=== PATIENT | female | born 1950 | race Caucasian/White ===

== ENCOUNTER → 2016-09-20 | Outpatient (CLI) | payer BC ==
[~2016-09-20] MED LIST: AMLO-110 PO; CALC-20 PO; CHOL2000 PO; CRAN500C2 PO; LUTE15CA PO; MISCCAP80 PO; MULTTAB58 PO
--- NOTE | 2016-09-20 12:39 | MAMMOGRAPHY REPORT ---
BILATERAL DIGITAL SCREENING MAMMOGRAM WITH CAD: 09/20/2016 TECHNIQUE: Current study was also evaluated with a Computer Aided Detection (CAD) system. Bilatera l CC and MLO views were obtained. COMPARISON: Comparison is made to exams dated: 09/20/2015 mammogram, 09/15/2013 mammogram, 09/16/2014 ryanne mogram, 09/13/2012 mammogram, 09/12/2011 mammogram, and 09/08/2010 mammogram - [facility] [place]. BREAST COMPOSITION: There are scattered areas of fibroglandular density in both breasts. FINDINGS: No suspicious masses, calcifications, or areas of architectural distortion are noted in e ither breast. There has been no significant interval change compared to prior exams. IMPRESSION: ACR BI-RADS CATEGORY 1: NEGATIVE There is no mammographic evidence of malignancy. A 1 year screening mammogram is recommended. The p atient will receive written notification of the results. Approximately 10% of breast cancers are not detected with mammography. A negative mammographic repor t should not delay biopsy if a clinically suggestive mass is present. Kalani Duval M.D. ah/:09/20/2016 12:18:47 Documentation Spec: Evelyne Troncoso RT(R)(M), [facility] letter sent: Normal 1/2 BI-RADS Code: ACR BI-RADS Category 1: Negative
== END | disposition home or self-care (01) ==
LOC: C.MAMM 09:06
PROVIDERS: ATTEND Obstetrics & Gynecology
DX: Z12.31 Encounter for screening mammogram for malignant neoplasm of breast (principal)

== ENCOUNTER → 2016-12-20 | Outpatient (CLI) | payer BC ==
[2016-12-20 10:50] LABS: BASO % 0.6 %; BASO ABS # 0.03 K/uL (0-0.2); COMPLETE YES; EOS % 1.8 %; HEMATOCRIT 43.9 % (37-47); IG% 0.2 %; LYMPH % 25.9 %; LYMPH ABS # 1.33 K/uL (1.2-3.4); MEAN CELL VOLUME 92.6 fL (80-100); MEAN CORPUSCULAR HGB CONC 33.5 g/dl (32-36); MONO % 9.7 %; NEUT % 61.8 %; PLATELET COUNT 259 K/uL (130-400); RED BLOOD COUNT 4.74 M/uL (4.2-5.4); WHITE BLOOD COUNT 5.13 K/uL (4.8-10.8)
[2016-12-20 10:52] LABS: ALT/SGPT 25 U/L (12-78); AST/SGOT 17 U/L (15-37); BLOOD UREA NITROGEN 17 mg/dl (7-18); BUN/CREATININE RATIO 19.6 (10-20); CARBON DIOXIDE 28 mmol/L (21-32); CHLORIDE 107 mmol/L (98-107); CHOLESTEROL 230 mg/dl (0-200); CREATININE 0.89 mg/dl (0.60-1.20); GLUCOSE 88 mg/dl (70-99); POTASSIUM 4.4 mmol/L (3.5-5.1); SODIUM 142 mmol/L (136-145); TRIGLYCERIDES 75 mg/dl (0-150); VERY LOW DENSITY LIPOPROT CALC 15 mg/dl
[2016-12-20 10:55] LABS: CHOLESTEROL/HDL RATIO 3.5; HDL CHOLESTEROL 66 mg/dl; LDL CHOLESTEROL CALCULATED 149 mg/dl
[2016-12-20 11:00] LABS: CALCIUM 9.6 mg/dl (8.5-10.1)
== END | disposition home or self-care (01) ==
LOC: C.LAB1850 09:34
PROVIDERS: ATTEND Internal Medicine
DX: Z00.00 Encounter for general adult medical examination without abnormal findings (principal); Z11.59 Encounter for screening for other viral diseases; E78.5 Hyperlipidemia, unspecified; I10 Essential (primary) hypertension; M19.90 Unspecified osteoarthritis, unspecified site; R31.9 Hematuria, unspecified

== ENCOUNTER → 2017-05-07 | Outpatient (CLI) | payer BC | END | disposition home or self-care (01) | LOC: C.LAB 13:47 | PROVIDERS: ATTEND Nurse Practitioner Adult Health | DX: R30.0 Dysuria (principal) ==

== ENCOUNTER → 2017-07-02 | Outpatient (CLI) | payer BC | END | disposition home or self-care (01) | LOC: C.RDSM 11:42 | PROVIDERS: ATTEND Physical Medicine & Rehabilitation Sports Medicine | DX: M79.671 Pain in right foot (principal) ==

== ENCOUNTER → 2017-09-24 | Outpatient (CLI) | payer BC ==
--- NOTE | 2017-09-24 15:18 | MAMMOGRAPHY REPORT ---
BILATERAL DIGITAL SCREENING MAMMOGRAM TOMOSYNTHESIS WITH CAD: 09/24/2017 CLINICAL HISTORY: Routine screening examination. TECHNIQUE: Breast tomosynthesis in addition to standard 2D mammography was performed. Current study was also evaluated with a Computer Aided Detection (CAD) system. COMPARISON: Comparison is made to exams dated: 09/20/2016 mammogram, 09/20/2015 mammogram, 09/16/2014 mamm ogram, 09/15/2013 mammogram, 09/13/2012 mammogram, and 09/12/2011 mammogram - [facility] . BREAST COMPOSITION: There are scattered areas of fibroglandular density in both breasts. FINDINGS: The parenchymal pattern is unchanged. No developing mass, architectural distortion or clus ter of suspicious microcalcifications is seen in either breast. IMPRESSION: ACR BI-RADS CATEGORY 2: BENIGN There is no mammographic evidence of malignancy. A 1 year screening mammogram is recommended. The pa tient will receive written notification of the results. Approximately 10% of breast cancers are not detected with mammography. A negative mammographic report should not delay biopsy if a clinically suggestive mass is present. Niya Smith M.D. ay/:09/24/2017 12:10:10 Senior Q[employer] Automation Engineer: Evelyne STACK(Berny)(Rakan), [facility] letter sent: Normal 1/2 BI-RADS Code: ACR BI-RADS Category 2: Benign
== END | disposition home or self-care (01) ==
LOC: C.MAMM 08:49
PROVIDERS: ATTEND Obstetrics & Gynecology
DX: Z12.31 Encounter for screening mammogram for malignant neoplasm of breast (principal)

== ENCOUNTER → 2017-09-24 | Outpatient (CLI) | payer BC ==
[2017-09-24 10:14] LABS: HEMATOCRIT 42.5 % (37-47); HEMOGLOBIN 14.7 g/dL (12.0-16.0); MEAN CELL VOLUME 91.4 fL (80-100); MEAN CORPUSCULAR HEMOGLOBIN 31.6 pg (25-34); MEAN CORPUSCULAR HGB CONC 34.6 g/dl (32-36); MEAN PLATELET VOLUME 12.5 fL (7.4-10.4); PLATELET COUNT 209 K/uL (130-400); RED CELL DISTRIBUTION WIDTH CV 14.6 % (11.5-14.5)
[2017-09-24 10:25] LABS: PTT PATIENT 21.5 SECONDS (21.0-31.0)
[2017-09-24 10:29] LABS: BLOOD UREA NITROGEN 19 mg/dl (7-18); CALCIUM 9.7 mg/dl (8.5-10.1); CARBON DIOXIDE 25 mmol/L (21-32); CREATININE 0.84 mg/dl (0.60-1.20); GLUCOSE 88 mg/dl (70-99); SODIUM 139 mmol/L (136-145)
== END | disposition home or self-care (01) ==
LOC: C.LAB1850 09:15
PROVIDERS: ATTEND Internal Medicine Interventional Cardiology
DX: Z01.818 Encounter for other preprocedural examination (principal)

== ENCOUNTER → 2017-10-04 | Day surgery (SDC) | payer BC ==
[~2017-10-04] VITALS: Ht 162.6 cm; Wt 102.3 kg
[~2017-10-04] MED LIST changes: +FENTANYL CITRATE INJ 50 MCG/1 ML 2 ML VIAL ONE; +LIDOCAINE HCL 1% 20 ML VIAL INJ ONE; +LIDOCAINE HCL 1% 20 ML VIAL ONE; +LIDOCAINE/EPINEPHRINE 1% INJ 50 ML VIAL ONE; +MIDAZOLAM HCL 1 MG/ML 2ML VIAL ONE; +ORM MISCELLANEOUS MED XX ONE; +SODIUM BICARB 8.4% INJ 50 MEQ/50 ML SYR IV ONE
[2017-10-04 07:00] VITALS: BP 142/91; PULSE 71; TEMP 36.8; O2SAT 98; Ht 162.6 cm; Wt 102.3 kg
[2017-10-04] MEDS: SODIUM CHLORIDE 0.9% 1000ML IV SCH ×2 (07:28→09:15)
--- NOTE | 2017-10-04 07:38 | Pre Sedation Assessment ---
Pre Sedation Assessment General Date of Sedation: Oct 04, 2017. Vital Signs Past 12 Hours Date Time Temp Pulse Resp B/P (MAP) Pulse Ox O2 Delivery O2 Flow Rate FiO2 10/04/17 07:00 36.8 71 18 142/91 (108) 98 Room Air Review Cardiovascular: regular rate, rhythm, no edema Lungs: chest non-tender, lungs clear Pre-Sedation Airway Assessment Smoking Status: Never Smoker Hx of Sleep Apnea: No Hx of difficult intubation: No Short Thick Neck: No Thyro-mental Distance: > 3 Finger Breadths Oral Cavity: WNL Mallampati Classification: Class II ASA Classification: Class II NPO Status Date of Last Intake of Fluids: Oct 04, 2017 Time of Last Intake of Fluids: 0600 Date of Last Intake of Solids: Oct 03, 2017 Time of Last Intake of Solids: 1830 Procedure Planning Contraindications for Sedation: None Current Medications Reviewed: Yes Notes The planned sedation has been discussed with the patient. Informed Consent was obtained. I have identified the patient, determined the appropriateness of sedation and have assessed the patient immediately prior to the procedure. All medicine(s) and interventions are by my order.
--- NOTE | 2017-10-04 07:43 | History and Physical ---
History & Physical Date Oct 04, 2017. History of Present Illness Mrs. Vasquez is a 67-year-old white female with a history of Hypertension, Dyslipidemia, and Obesity and longstanding Varicose Veins. Patient has a large cluster of varicose veins in the right popliteal space which has been present for several years, but now these are becoming larger, limit her range of motion to some degree, and cause some nagging discomfort. Patient admittedly spent most of her working years working upright and walking. Patient has tried conservative measures in the past including knee-high compression stockings, and warm compresses but symptoms persist. Patient offers no other complaints. She denies any prior cardiac history or prior cardiac events. She denies any history of clotting disorders, DVT, or any history of pulmonary embolism. Venous reflux ultrasound showed right SSV/proximal thigh-campus administrative assistant to be dilated with reflux. Past Medical/Surgical History Medical Problems: (1) HTN (hypertension) (2) Melanoma Surgical Problems: (1) H/O: hysterectomy Additional History Hepatic Disease: No Endocrine Disorder: No Kidney Disease: No Hypertension: Yes Heart Disease: No Bleeding Tendencies: No Infectious Diseases: No Allergies Coded Allergies: [place] Inhibitors (Verified Allergy, Intermediate, HIVES, 10/04/17) Home Medications Scheduled Amlodipine (Norvasc), 5 MG PO DAILY Calcium Carbonate-Vitamin D (Calcium 600 + D), 1 TAB PO DAILY Cholecalciferol (Vitamin D3), 1 CAP PO DAILY Cranberry (Vaccinium Macrocarp (Cranberry), 1 CAP PO DAILY Lutein-Zeaxanthin (Lutein), 1 CAP PO DAILY Multiple Vitamin (Multivitamin), 1 TAB PO DAILY Probiotic Product (Probiotic), 1 CAP PO DAILY Physical Examination Skin: warm/dry ENT: normal ENT inspection Head: normocephalic Neck: supple Respiratory/Chest: lungs clear Cardiovascular: regular rate, rhythm, no edema Abdomen / GI: normal bowel sounds Extremities: + pertinent finding (right popliteal varicose veins) Neurologic/Psych: no motor/sensory deficits, alert Diagnosis Chronic venous insufficiency ASA Classification: ASA Class II Plan of Treatment Proceed with right SSV, thigh-campus administrative assistant RFA
--- NOTE | 2017-10-04 09:19 | Post Sedation Assessment ---
Post Sedation Assessment General Date of Sedation Oct 04, 2017. Vital Signs: Vital Signs Past 12 Hours Date Time Temp Pulse Resp B/P (MAP) Pulse Ox O2 Delivery O2 Flow Rate FiO2 10/04/17 09:10 Room Air 10/04/17 09:05 Room Air 10/04/17 09:00 Room Air 10/04/17 08:55 Room Air 10/04/17 08:50 Room Air 10/04/17 08:45 Room Air 10/04/17 08:40 Room Air 10/04/17 08:35 Room Air 10/04/17 08:30 Room Air 10/04/17 08:25 Room Air 10/04/17 08:20 85 18 143/84 98 Room Air 10/04/17 07:00 36.8 71 18 142/91 (108) 98 Room Air Post Procedure Recovery Score Activity: (2) Moves 4 extremities * Respiration: (2) Deep breath/cough Circulation: (2) +/-20% PreAnes Value Consciousness: (2) Fully Awake Oxygen Saturation: (2) > 92% On Room Air Discharge Sedation Level of Care: Phase I Post Sedation Plan On clinical assessment, the patient appears to have tolerated the sedation without complications. Patient is recovering as anticipated. Patient will continue to be monitored by nursing and may be discharged when sedation discharge criteria are met per below protocol. Upon Completions of procedure and additional 15 minutes continue every 5 minute vital signs and the P.A.R. score; then discharge to a Phase I or Fast Track to Phase II per the following guidelines: * Discharge Patient to appropriate Phase II area if PAR is 8 or greater or return to pre- procedure baseline. The post - procedure orders will be as directed. * If PAR score is less than 8 or not return to pre-procedure baseline then patient will follow Phase I monitoring till PAR is reached for Phase II. The Phase I may be done in procedure room or may call to secure a Phase I area. * If naloxone or flumazenil are used for reversal, hold in Phase I for an additional 60 -120 minutes before discharge to Phase II. Please call the Sedation Physician to re-evaluate and complete post-note for discharge to Phase II area. Do NOT discharge from procedure sedation or Phase 1 until post- sedation evaluation note is complete by procedure /sedation MD Sedation Discharge Instructions to be given to the patient at discharge to home.
[2017-10-04 09:20] VITALS: BP 174/94; PULSE 68; TEMP 36.8; O2SAT 99
--- NOTE | 2017-10-04 09:23 | [facility] Operative Report ---
Operative Report Operative Date Oct 04, 2017. Pre-Operative Diagnosis varicose veins Post-Operative Diagnosis varicose veins Procedure(s) Performed Attempted Right Lower Extremity Small Saphenous Vein Radio Frequency Ablation Surgeon Dr. Doug Haines Balance Engineer Surgeon(s) none Estimated Blood Loss 2 ml Findings Small saphenous vein Small thigh panelboard tank pumper with varicosities. Specimens none Drains None Anesthesia Type Local Complication(s) none Disposition Recovery Room / PACU Description of Procedure Attempted to access thigh panelboard tank pumper above the junction with popliteal but unable to pass wire. SSV below the the SPJ was small with thick marie unable to accessed. NO SSV RFA PERFORMED. I attest to the content of the Intraoperative Record and any orders documented therein. Any exceptions are noted below.
--- NOTE | 2017-10-04 09:25 | Discharge Instructions ---
Discharge Instructions Procedure Procedure Date: Oct 04, 2017. Reason for Visit: Chronic Venous Insufficiency. Discharge Discharge Date: Oct 04, 2017. Discharge Diagnosis: Chronic venous insufficiency Last Recorded Wt (Kilograms): 102.3 Anesthesia Post Anesthesia Instructions: If you have had General Anesthesia or IV Sedation: * Do not drive today. * Resume driving when surgeon permits. * Do not make important decisions or sign legal documents today. * Call surgeon for: 1. Temperature elevations greater than 101 degrees F. 2. Uncontrollable pain. 3. Excessive bleeding. 4. Persistent nausea and vomiting. 5. Medication intolerance (nausea, vomiting or rash). * For nausea and vomiting use only clear liquids such as: tea, soda, bouillon until nausea subsides, then gradually increase diet as tolerated. * If you have any concerns or questions, call your surgeon's office. If physician is unavailable and it is an emergency, call 911 or go to the nearest emergency room. Instructions Activity Recommendations: limitations as noted below Recommended Home Diet: no limitations Allergies: Coded Allergies: [place] Inhibitors (Verified Allergy, Intermediate, HIVES, 10/04/17) Follow Up Additional Instructions: Up walking today. Wear compression stockings as needed for symptoms. Any severe pain, present to the emergency room for evaluation for DVT. Follow-up with: As scheduled. Debra Moreno Recommendations: Call your doctor if: * Temperature above 101 degrees * Pain not relieved by pain medicine ordered * There is increased drainage or redness from any incision * You have any unanswered questions or concerns. Your Doctors Instructions noted above were prepared by provider Galo Haines. Patient Signature Section: Patient Instructions Signature Page Shruthi Vasquez Patient (or Guardian) Signature/Date: I have read and understand the instructions given to me by my caregivers. Caregiver/RN/Doctor Signature/Date: The above-named patient and/or guardian has received patient instructions on this date. + Original Patient Signature Page (only) stays with chart. Please make copy for patient.
== END | disposition home or self-care (01) ==
LOC: C.ACU 06:30
PROVIDERS: ATTEND Internal Medicine Interventional Cardiology
DX: I83.891 Varicose veins of right lower extremity with other complications (principal); I87.2 Venous insufficiency (chronic) (peripheral); I10 Essential (primary) hypertension; E78.5 Hyperlipidemia, unspecified; E66.9 Obesity, unspecified; Z85.820 Personal history of malignant melanoma of skin; Z79.899 Other long term (current) drug therapy

== ENCOUNTER → 2017-10-19 | Outpatient (CLI) | payer BC ==
[~2017-10-19] MED LIST changes: -FENTANYL CITRATE INJ 50 MCG/1 ML 2 ML VIAL ONE; -LIDOCAINE HCL 1% 20 ML VIAL INJ ONE; -LIDOCAINE HCL 1% 20 ML VIAL ONE; -LIDOCAINE/EPINEPHRINE 1% INJ 50 ML VIAL ONE; -MIDAZOLAM HCL 1 MG/ML 2ML VIAL ONE; -ORM MISCELLANEOUS MED XX ONE; -SODIUM BICARB 8.4% INJ 50 MEQ/50 ML SYR IV ONE
--- NOTE | 2017-10-19 07:35 | DIAGNOSTIC IMAGING REPORT ---
RENAL ULTRASOUND CLINICAL HISTORY: Urinary tract infection. COMPARISON STUDY: CT of the abdomen and pelvis December 23, 2014. TECHNIQUE: Sonography of the kidneys and the urinary bladder was performed. FINDINGS: The right kidney measures 11.5 x 4.6 x 4.8 cm and the left measures 11.5 x 4.3 x 4.3 cm. There is mild left collecting system dilatation. There is no right hydronephrosis. Renal echogenicity, size and cortical thickness are normal. No renal mass or calculus is identified. Both ureteral jets were identified. IMPRESSION: Mild left collecting system dilatation. Electronically signed by: Navjot Yeung M.D. 10/19/2017 7:34 AM Dictated Date/Time: 10/19/2017 7:32 AM
== END | disposition home or self-care (01) ==
LOC: C.ULTR 06:26
PROVIDERS: ATTEND Urology
DX: N39.0 Urinary tract infection, site not specified (principal)